=== PATIENT | male | born 2000 | race Caucasian/White ===

== ENCOUNTER 2020-02-12 11:48 | Emergency (ER) | payer OTHER ==
[~2020-02-12] VITALS: Ht 172.7 cm; Wt 55.8 kg
[2020-02-12 12:00] VITALS: Ht 172.7 cm; Wt 55.8 kg
[2020-02-12 13:02] VITALS: BP 115/73
== END 2020-02-12 13:02 | disposition home or self-care (01) ==
LOC: ED 11:48
DX: L50.9 Urticaria, unspecified (principal)
CPT/HCPCS: J7512